=== PATIENT | female | born 1985 | race Caucasian/White ===

== ENCOUNTER → 2023-06-13 | Outpatient (CLI) | payer OTHER ==
--- NOTE | 2023-06-13 10:52 | US ---
EXAMINATION TYPE: US groin LT DATE OF EXAM: 06/13/2023 COMPARISON: NONE CLINICAL INDICATION: Female, 37 years old with history of R59.0 LOCALIZED ENLARGED LYMPH NODES; left groin swelling and pain x 4-5 days TECHNIQUE: several images obtained at the area of concern FINDINGS: lymphadenopathy noted at area of concern Largest lymph node measures: 2.2x1.0x1.3cm A second prominent lymph node exhibiting a rounded appearance and diminished fatty hilum is also note d measuring 1.1x0.8x0.9cm IMPRESSION: Multiple left inguinal lymph nodes. Enlarged lymphadenopathy is present. Consider additi onal workup
== END | disposition home or self-care (01) ==
LOC: RADUSWWP 09:57
PROVIDERS: ATTEND Family Medicine
DX: R59.1 Generalized enlarged lymph nodes (principal)